=== PATIENT | female | born 1960 | race Caucasian/White ===

== ENCOUNTER → 2017-06-03 | Outpatient (CLI) | payer BC | LOC: MC.RAD 09:31 | DX: Z12.31 Encounter for screening mammogram for malignant neoplasm of breast (principal) ==

== ENCOUNTER → 2018-09-08 | Outpatient (CLI) | payer BC | LOC: MC.RAD 10:00 | DX: Z12.31 Encounter for screening mammogram for malignant neoplasm of breast (principal) ==

== ENCOUNTER → 2020-01-04 | Outpatient (CLI) | payer BC | LOC: MC.RAD 11-09 10:30 | DX: Z12.31 Encounter for screening mammogram for malignant neoplasm of breast (principal) ==

== ENCOUNTER 2021-01-09 09:30 | Outpatient (RCR) | payer BC | END 2021-01-26 11:21 | disposition home or self-care (01) | LOC: PT.GENESIS 09:30 | DX: M54.5 Low back pain (principal) ==

== ENCOUNTER → 2022-01-01 | Outpatient (CLI) | payer BC | LOC: MC.RAD 08:30 | DX: Z12.31 Encounter for screening mammogram for malignant neoplasm of breast (principal) ==

== ENCOUNTER 2024-05-04 05:50 | Day surgery (SDC) | payer BC ==
[~2024-05-04] VITALS: Ht 162.6 cm; Wt 65.6 kg
[~2024-05-04 05:50] MED LIST: Ondansetron 4 MG/2 ML VIAL IV PRN
[2024-05-04] MEDS ORDERED: LR 1,000 ML IV SCH (06:00)
[2024-05-04] MEDS ORDERED: ESTRACE0.5 MG PO (06:29)
[2024-05-04] MEDS ORDERED: PROBIOTIC BLEN1 EACH PO (06:30)
[2024-05-04] MEDS ORDERED: B-121000 MCG PO (06:30)
[2024-05-04] MEDS ORDERED: MULTIVITAMIN PO (06:31)
[2024-05-04] MEDS ORDERED: THE MEDICINE S200 M2 PO (06:32)
[2024-05-04] MEDS ORDERED: ESTRACE0.1 MG/GM VG (06:33)
[2024-05-04 06:52] VITALS: BP 124/72; PULSE 84; TEMP 97.7
[2024-05-04 08:00] VITALS: BP 107/65; PULSE 72; TEMP 97.5
[2024-05-04 08:15] VITALS: BP 117/67; PULSE 68
[2024-05-04 08:30] VITALS: BP 128/74; PULSE 68
--- NOTE | 2024-05-04 08:40 | NUR ---
0800 RETURNS TO ROOM 2 PER CART. AWAKE, ALERT. RESP UNLABORED. AMBULATES TO RECLINER WITH STANDBY ASSISST. DENIES NAUSEA OR ABD DISCOMFORT. VITAL SIGNS OBTAINED. CALL LIGHT AT SIDE. IN ROOM. 0802 DR MEYER HERE TO VISIT WITH PATIENT 0815 TOLERATES PO JUICE WITHOUT NAUSEA. 0830 DRESSES SELF
== END 2024-05-04 08:40 | disposition home or self-care (01) ==
LOC: SDCO 05:50
DX: Z12.11 Encounter for screening for malignant neoplasm of colon (principal); K62.89 Other specified diseases of anus and rectum; K57.30 Diverticulosis of large intestine without perforation or abscess without bleeding
CPT/HCPCS: J2704; J7120

== ENCOUNTER → 2024-06-15 | Outpatient (CLI) | payer BC ==
[~2024-06-15] MED LIST changes: +B-121000 MCG PO; +ESTRACE0.1 MG/GM VG; +ESTRACE0.5 MG PO; +MULTIVITAMIN PO; -Ondansetron 4 MG/2 ML VIAL IV PRN; +PROBIOTIC BLEN1 EACH PO; +THE MEDICINE S200 M2 PO
== END ==
LOC: MC.RAD 10:00
DX: Z12.31 Encounter for screening mammogram for malignant neoplasm of breast (principal)